=== PATIENT | female | born 1955 | race Caucasian/White ===

== ENCOUNTER → 2017-07-01 | Outpatient (CLI) | payer MEDICAID ==
[2015-08-15 13:05] VITALS: BMI 43.5
[~2017-07-01] MED LIST: ACET-1966 PO; ACET-2031 PO; ALBUDR INH; AML5 PO; AMLO-96 PO; BACDS PO; BETA6VIA IJ; BUPI5VIA IJ; CELE-1 PO; CEPH-13 PO; CHOL100059 PO; CIP500 GT; CIT20 PO; CITA-139 PO; DOXY-181 PO; DULO30CA6 PO; ESCI20TA38 PO; GABA-549 PO; GLY5 PO; HCTZ25 PO; HYDR-2966 PO; IBUP800T37 PO; INSU100I5 SUBQ; LACT1CAP4 PO; LEVI SUBQ; LEVO-85 PO; LOR10 PO; LOR5 PO; LOR5/325 PO; LORA-629 PO; LOSA-54 PO; MELO-205 PO; MET500 PO; METF-410 PO; METH4TAB66 PO; NAPR500T31 PO; NEED-653 MC; OMEP-125 PO; OMEP-153 PO; ONDA4TAB PO; ONDA4TAB9 PO; OXYC-373 PO; OXYGEN INH; PER PO; PROM-110 PO; ROBC GT; SIMV-49 PO; SULF-170 PO; TRIA10.8; [UNRECOGNIZED DRUG - CODE] GT; [UNRECOGNIZED DRUG - OTHER]; diabetic supplies
== END ==
LOC: LAB 09:54
PROVIDERS: ATTEND Nurse Practitioner Family
DX: E11.9 Type 2 diabetes mellitus without complications (principal); I10 Essential (primary) hypertension
CPT/HCPCS: 36415; 82040; 82247; 82310; 82374; 82435; 82565; 82947; 83036; 84075; 84132; 84155; 84295; 84450; 84460; 84520

== ENCOUNTER → 2017-11-24 | Outpatient (CLI) | payer MEDICAID ==
[2015-08-15 13:05] VITALS: BMI 43.5
[~2017-11-24] MED LIST changes: +AMLO-111 PO; -AMLO-96 PO; +BUPR-126 PO; -CITA-139 PO; +CITA-145 PO; +DULO60CA56 PO; -METF-410 PO; +METF-450 PO; +VENL75CA4 PO; +[UNRECOGNIZED DRUG - SUPPLY]
[2017-11-24 09:40] LABS: PLATELET COUNT, AUTOMATED 302 K/uL (150-450)
== END ==
LOC: LAB 09:20
PROVIDERS: ATTEND Nurse Practitioner Family
DX: E11.9 Type 2 diabetes mellitus without complications (principal); E78.5 Hyperlipidemia, unspecified; I10 Essential (primary) hypertension; R53.83 Other fatigue
CPT/HCPCS: 36415; 82040; 82247; 82310; 82374; 82435; 82465; 82565; 82947; 83036; 83718; 84075; 84132; 84155; 84295; 84443; 84450; 84460; 84478; 84520; 85025

== ENCOUNTER → 2018-02-05 | Outpatient (CLI) | payer MEDICAID ==
[2015-08-15 13:05] VITALS: BMI 43.5
[~2018-02-05] MED LIST changes: +FLUT9.9S IH; +TERB250T74 PO; +VENL150C3 PO
[2018-02-05 10:59] LABS: PLATELET COUNT, AUTOMATED 269 K/uL (150-450)
== END ==
LOC: LAB 10:43
PROVIDERS: ATTEND Nurse Practitioner Family
DX: E11.9 Type 2 diabetes mellitus without complications (principal); I10 Essential (primary) hypertension
CPT/HCPCS: 36415; 82040; 82247; 82310; 82374; 82435; 82565; 82947; 84075; 84132; 84155; 84295; 84450; 84460; 84520; 85025

== ENCOUNTER → 2018-03-05 | Outpatient (CLI) | payer MEDICAID ==
[2015-08-15 13:05] VITALS: BMI 43.5
== END ==
LOC: LAB 13:24
PROVIDERS: ATTEND Nurse Practitioner Family
DX: E11.9 Type 2 diabetes mellitus without complications (principal); I10 Essential (primary) hypertension
CPT/HCPCS: 36415; 82040; 82247; 82310; 82374; 82435; 82565; 82947; 83036; 84075; 84132; 84155; 84295; 84443; 84450; 84460; 84520

== ENCOUNTER → 2018-05-19 | Outpatient (CLI) | payer MEDICAID ==
[2015-08-15 13:05] VITALS: BMI 43.5
[~2018-05-19] MED LIST changes: -AMLO-111 PO; +AMLO-125 PO; +METO25TA23 PO
[2018-05-19 10:11] LABS: PLATELET COUNT, AUTOMATED 256 K/uL (150-450)
[2018-05-19 10:24] LABS: LDL CHOLESTEROL 90 mg/dl
== END ==
LOC: LAB 09:53
PROVIDERS: ATTEND Nurse Practitioner Family
DX: E11.9 Type 2 diabetes mellitus without complications (principal); I10 Essential (primary) hypertension; E78.5 Hyperlipidemia, unspecified
CPT/HCPCS: 36415; 82040; 82247; 82310; 82374; 82435; 82465; 82565; 82947; 83036; 83718; 84075; 84132; 84155; 84295; 84443; 84450; 84460; 84478; 84520; 85025

== ENCOUNTER → 2018-06-16 | Outpatient (CLI) | payer MEDICAID ==
[2015-08-15 13:05] VITALS: BMI 43.5
[~2018-06-16] MED LIST changes: +AZIT-1 PO; +GLIM1TAB25 PO; +METO50TA19 PO; +PRED20TA6 PO; +SIMV-54 PO
[2018-06-16 15:21] LABS: PLATELET COUNT, AUTOMATED 267 K/uL (150-450)
--- NOTE | 2018-06-16 15:45 | RADIOLOGY IMAGING REPORT ---
FACILITY: [facility] - [place] PATIENT NAME: Odalis Barajas : 1955 MR: [id number] V: [id number] EXAM DATE: ORDERING PHYSICIAN: MARIA L CANTU TECHNOLOGIST: Location: [facility] - [place] Patient: Odalis Barajas : 1955 Visit/Account:[id number] Date of Sevice: 06/16/2018 2 VIEWS CHEST INDICATION: Cough and shortness of breath for 4 days. Low oxygen saturation. COMPARISON: 02/25/2015. FINDINGS: Cardiomediastinal silhouette and pulmonary vessels within normal limits. There is no focal infiltrate or lobar consolidation. Resolution previous left infiltrate. There is no pneumothorax or pleural effusion. No nodule. Upper abdomen is unremarkable. No acute bony abnormality. IMPRESSION: 1. No acute cardiopulmonary process. Report Dictated By: Shahid Juárez at 06/16/2018 3:39 PM Report E-Signed By: Shahid Juárez at 06/16/2018 3:40 PM WSN:[id number]
== END ==
LOC: LAB 15:04
PROVIDERS: ATTEND Nurse Practitioner Primary Care
DX: R06.02 Shortness of breath (principal)
CPT/HCPCS: 36415; 71046; 82040; 82247; 82310; 82374; 82435; 82565; 82947; 84075; 84132; 84155; 84295; 84450; 84460; 84520; 85025